=== PATIENT | female | born 1990 | race American Indian/Alaskan Native ===

== ENCOUNTER 2017-03-02 01:16 | Outpatient (CLI) | payer MEDICAID ==
[2017-03-02] MEDS ORDERED: LACTATED RINGERS 1,000 ML ONE (01:21)
[2017-03-02] MEDS ORDERED: LACTATED RINGERS 1,000 ML IV ONE (01:35)
[2017-03-02 03:24] VITALS: BP 108/64
--- NOTE | 2017-03-02 03:24 | Ultrasound Report ---
FINAL REPORT EXAM: US OB BPP WO NON-STRESS HISTORY: NON REASSURING HEART TONES TECHNIQUE: A biophysical profile was performed. FINDINGS: For breathing movements, a total score of 2 out of 2 was obtained. For movements, a total score of 2 out of 2 was obtained. For posterior in tone, a total score of 2 out of 2 was obtained. For qualitative amniotic fluid volume, a total score of 2 out of 2 was obtained. The heart is 151 BPM. IMPRESSION: Biophysical profile score of 8 out of 8. heart rate is 151 BPM.
--- NOTE | 2017-03-02 03:25 | Ultrasound Report ---
FINAL REPORT EXAM: US OB LIMITED HISTORY: NON REASSURING HEART TONES TECHNIQUE: A limited OB sonogram was obtained. FINDINGS: There is a single viable intrauterine with an estimated gestational age of 40 weeks 0 days. The fetus is in cephalic presentation. The and L fluid volume is 23.8 cm which is within normal range. The heart rate is 151 BPM. IMPRESSION: Cephalic presentation. heart rate is 151 BPM. EL equals 23.8 cm which is normal.
== END 2017-03-02 04:01 | disposition home or self-care (01) ==
LOC: TRG 01:16
PROVIDERS: ATTEND Obstetrics & Gynecology
DX: O48.0 Post-term pregnancy (principal); Z3A.40 40 weeks gestation of pregnancy
CPT/HCPCS: 59025; 76815; 76819; 96360; J7120

== ENCOUNTER 2017-03-06 06:38 | Inpatient (IN) | payer MEDICAID ==
[2017-03-06] MEDS ORDERED: LACTATED RINGERS 1,000 ML ONE (06:54)
[2017-03-06] MEDS: LACTATED RINGERS 1,000 ML IV SCH ×2 (07:00→08:24)
[2017-03-06] MEDS ORDERED: STADOL IV PRN (07:44)
[2017-03-06] MEDS ORDERED: SUBLIMAZE IV PRN (07:44)
[2017-03-06] MEDS ORDERED: POLYCILLIN/NS 2 GM/100 ML 2 GM/100 ML BAG IV ONE (07:44)
[2017-03-06] MEDS ORDERED: PITOCin/NS 20 UNIT/1000ML DRIP 20 UNITS/1,000 ML BAG IV SCH (08:00)
[2017-03-06 08:03] LABS: Hematocrit 35.9 % (30.3-42.9); Hemoglobin 11.6 gm/dl (10.1-14.3); Mean Corpuscular HGB Conc 32 % (30-34); Mean Corpuscular Volume 80 fl (79-97); Platelet Count 209 K/mm3 (140-440); Red Blood Count 4.49 M/mm3 (3.65-5.03); Red Cell Distribution Width 17.7 % (13.2-15.2)
[2017-03-06 08:10] LABS: Mean Corpuscular Hemoglobin 26 pg (28-32)
[2017-03-06] MEDS ORDERED: PROVENTIL IH ONE (09:17)
[2017-03-06] MEDS ORDERED: PROVENTIL IH PRN (09:45)
[2017-03-06] MEDS ORDERED: MINERAL OIL PO PRN (09:46)
[2017-03-06] MEDS ORDERED: XYLOCAINE 2% INFILTRATI ONE (09:46)
[2017-03-06] MEDS ORDERED: BRETHINE IVP PRN (09:46)
[2017-03-06] MEDS ORDERED: BRETHINE SUB-Q PRN (09:46)
[2017-03-06] MEDS ORDERED: ePHEDrine SULFATE IV PRN ×2 (09:46→10:21)
--- NOTE | 2017-03-06 09:55 | History and Physical Report ---
History of Present Illness Date of examination: 03/06/17 Date of admission: 03/06/17 06:51 Chief complaint: Intense Labor Pains History of present illness: Early entry to care, co-managed with [facility] due to Maternal obesity and Asthma. course complicated a UTI (treated with Augmentin), and + Chlamydia (treated with Negative YAZAN), a abnormal 1hour GTT (followed by normal 3hour GTT), and Vitamin D Deficiency. Past History Past Medical History: asthma Past Surgical History: no surgical history [employer] History: herpes Family/Genetic History: diabetes (Mother and Sister) Social history: no significant social history, single - Obstetrical History Expected Date of Delivery: 03/02/17 Actual Gestation: 40 Week(s) 4 Day(s) : 2 Para: 1 Hx # Term Pregnancies: 1 Number of Living Children: 1 #1 Gender: Female year: 9 Birthweight: 3.487 kg Method of Delivery: Vaginal Gestational age at delivery: 41 Complications: none Medications and Allergies Allergies Allergy/AdvReac Type Severity Reaction Status Date / Time No Known Allergies Allergy Unverified 03/02/17 01:21 Home Medications Medication Instructions Recorded Confirmed Last Taken Type Pnv,Calcium 72/Iron/Folic Acid 03/06/17 03/05/17 10:00 History [Pnv Plus Multivit Tab] Pnv,Calcium 72/Iron/Folic Acid 1 tab PO DAILY 03/06/17 03/06/17 03/05/17 History [Pnv Plus Multivit Tab] Pnv,Calcium 72/Iron/Folic Acid 1 tab PO DAILY 03/06/17 03/06/17 03/05/17 10:00 History [Pnv Plus Multivit Tab] Active Meds: Active Medications Albuterol (Proventil) 2.5 mg IH Q4HRT PRN PRN Reason: Shortness Of Breath Butorphanol Tartrate (Stadol) 2 mg IV Q2H PRN PRN Reason: Pain , Severe (7-10) Last Admin: 03/06/17 08:10 Dose: 2 mg Fentanyl (Sublimaze) 100 mcg IV Q2H PRN PRN Reason: Labor Pain Ampicillin Sodium (Polycillin/Ns 1 Gm/50 Ml) 1 gm in 50 mls @ 100 mls/hr IV Q4HR SHEILA PRN Reason: Protocol Lactated Ringer's (Lactated Ringers) 1,000 mls @ 125 mls/hr IV DIRECT SHEILA Last Admin: 03/06/17 08:24 Dose: 125 mls/hr Oxytocin/Sodium Chloride (Pitocin/Ns 20 Unit/1000ml Drip) 20 units in 1,000 mls @ 125 mls/hr IV DIRECT SHEILA Review of Systems All systems: negative - Vital Signs Vital signs: Vital Signs Temp Pulse Resp BP Pulse Ox 97.9 F 106 H 16 131/78 97 03/06/17 08:11 03/06/17 08:11 03/06/17 08:11 03/06/17 08:11 03/06/17 08:11 Temp Pulse Resp BP Pulse Ox 97.9 F 117 H 16 131/78 98 03/06/17 08:11 03/06/17 09:52 03/06/17 09:32 03/06/17 08:15 03/06/17 09:52 - Physical Exam Breasts: Positive: normal Cardiovascular: Regular rate Lungs: Positive: Clear to auscultation, Normal air movement Abdomen: Positive: normal appearance, soft, normal bowel sounds Genitourinary (Female): Positive: normal external genitalia, normal perenium Vagina: Positive: normal moisture Uterus: Positive: enlarged Anus/Rectum: Positive: normal perianal skin - Obstetrical FHR: category 1 Uterine Contraction Monitor Mode: External Cervical Dilatation: 5 (Moderate amount of mecoium stained fluids upon AROM at 0844) Cervical Effacement Percentage: 90 station: -2 Uterine Contraction Frequency (min): 1-2 Uterine Contraction Pattern: Regular Uterine Tone Measurement Phase: Resting Uterine Contraction Intensity: Moderate Results Result Diagrams: 03/06/17 07:28 Abnormal lab results 03/06/17 Range/Units 07:28 MCH 26 L (28-32) pg RDW 17.7 H (13.2-15.2) % All other labs normal. Assessment and Plan A: IUP @ 40 4/7 Weeks Category I Tracing Active Labor GBS Positive Maternal Obesity P: Admit to L&D per routine orders AROM IUPC GBS Prohylaxis
[2017-03-06] MEDS ORDERED: PITOCin/NS 30 UNIT/500ML 30 UNITS/500 ML BAG IV SCH (10:00)
[2017-03-06] MEDS ORDERED: LACTATED RINGERS 1,000 ML IV SCH (10:00)
[2017-03-06] MEDS: PITOCin/NS 20 UNIT/1000ML DRIP 20 UNITS/1,000 ML BAG IV SCH ×2 (10:20→12:07)
--- NOTE | 2017-03-06 10:20 | Anesthesia Consultation ---
Anesthesia Consult and Med Hx - Airway Anesthetic Teeth Evaluation: Good ROM Head & Neck: Adequate Mental/Hyoid Distance: Adequate Mallampati Class: Class III Intubation Access Assessment: Possibly Difficult - Pulmonary Exam CTA: Yes - Cardiac Exam Cardiac Exam: RRR - Pre-Operative Health Status ASA Pre-Surgery Classification: ASA3 Proposed Anesthetic Plan: Epidural - Pulmonary Hx Asthma: Yes (childhood, medications utilized two months ago) COPD: No Hx Pneumonia: No - Cardiovascular System Hx Hypertension: No - Central Nervous System Hx Seizures: No Hx Psychiatric Problems: No - Endocrine Hx Renal Disease: No Hx End Stage Renal Disease: No Hx Hypothyroidism: No Hx Hyperthyroidism: No - Hematic Hx Anemia: No Hx Sickle Cell Disease: No - Other Systems Hx Alcohol Use: No
[2017-03-06] MEDS ORDERED: NARCAN 2 MG/2 ML IV PRN (10:21)
--- NOTE | 2017-03-06 10:21 | Anesthesia Day of Surgery ---
Anesthesia Day of Surgery - Day of Surgery Patient Examined: Yes Patient H&P Reviewed: Yes Patient is NPO: Yes Beta Blockers: Yes Cardiac Clearance: Yes Pulmonary Clearance: Yes Aubrey's Test: N/A
[2017-03-06] MEDS ORDERED: MILK OF MAGNESIA PO PRN (10:28)
[2017-03-06] MEDS ORDERED: BENADRYL PO PRN (10:28)
[2017-03-06] MEDS ORDERED: PHENERGAN PR PRN (10:28)
[2017-03-06] MEDS ORDERED: NORCO 5/325 PO PRN (10:28)
[2017-03-06] MEDS ORDERED: DULCOLAX PR PRN (10:28)
--- NOTE | 2017-03-06 10:40 | Procedure Note ---
OB Delivery Note - Delivery Date of Delivery: 03/06/17 (1016) Surgeon: GRACE ROMO Ep Tech: MALOU ESTRADA Estimated blood loss: 100cc - Vaginal Delivery presentation: vertex Delivery position: OA Intrapartum events: meconium Delivery induction: none Delivery augmentation: rupture of membranes Delivery monitor: external FHT, internal uterine Route of delivery: Delivery placenta: spontaneous Delivery cord: nuchal cord, 3 umbilical vessels Episiotomy: none Delivery laceration: none Anesthesia: epidural Delivery comments: of a live 7'4 female over a intact perineum under epidural anesthesia with Apgars of 8 and 9 at 1016 on 03/06/2017. Tight nuchal cord x 1 , easily manually reduced with delivery of . Cord clamped and cut by ROBERTO Romo, not stimulated and placed on warmer to awaiting NICU/RESP team due to meconium stained fluids. Spontaneous delivery of placenta complete and intact with Connell side presenting at 1023. Fundus is firm and midline located 4 below the U. Lochia is scant. GBS prohylaxis x 1. Cord blood collected. Placenta discarded. - Infant A at 1 minute: 8 at 5 minutes: 9 Gender: Female (7'4)
[2017-03-06] MEDS ORDERED: SODIUM CHLORIDE FLUSH SYRINGE 10 ML IV NR (11:00)
[2017-03-06] MEDS ORDERED: fentaNYL-BUPIV 2 MCG/ML-0.125% 200 MCG/100 ML BAG EPIDURAL SCH (11:00)
[2017-03-06] MEDS ORDERED: DEPO-PROVERA (CONTRACEPTION) IM NR (11:15)
[2017-03-06] MEDS ORDERED: POLYCILLIN/NS 1 GM/50 ML 1 GM/50 ML BAG IV SCH (11:47)
[2017-03-06] MEDS: MOTRIN PO SCH ×2 (12:47→20:44)
[2017-03-06] MEDS ORDERED: AFRIN NS PRN (21:10)
[2017-03-06] MEDS: ROBITUSSIN PO PRN (21:36)
[2017-03-06 23:11] LABS: Hematocrit 30.2 % (30.3-42.9); Hemoglobin 9.8 gm/dl (10.1-14.3)
[2017-03-07] MEDS: MOTRIN PO SCH ×3 (03:54→19:09)
--- NOTE | 2017-03-07 12:39 | Post Anesthesia Evaluation ---
- Post Anesthesia Evaluation Patient Participated: Yes Airway Patent: Yes Stable Respiratory Function: Yes Nausea/Vomiting: No Temp > 96.8F: Yes Pain Manageable: Yes Adequeate Hydration: Yes Anesthesia Complications: No Block Receding Appropriately: Yes (Patient reports good mobility and function without indication of complication/sequelae.) Patient on Ventilator: No
--- NOTE | 2017-03-07 14:37 | Progress Note ---
Assessment and Plan A: PP Day #1 Stable P: Follow Routine orders Depo Provera prior to discharge D/C Home in the AM RTO in 6 Weeks Subjective - Subjective Date of service: 03/07/17 Interval history: Early entry to care, co-managed with [facility] due to Maternal obesity and Asthma. course complicated a UTI (treated with Augmentin), and + Chlamydia (treated with Negative YAZAN), a abnormal 1hour GTT (followed by normal 3hour GTT), and Vitamin D Deficiency. Patient reports: appetite normal, voiding normally, pain well controlled, flatus , bowel movement, ambulating normally : doing well, bottle feeding Objective - Vital Signs Latest vital signs: Vital Signs Temp Pulse Resp BP BP Pulse Ox 03/07/17 08:23 97.5 F L 77 16 123/80 98 03/07/17 04:54 18 03/07/17 03:54 18 03/06/17 23:50 98.6 F 93 H 18 115/64 03/06/17 21:44 18 03/06/17 20:44 18 03/06/17 20:00 97.9 F 97 H 18 110/71 03/06/17 16:54 98.4 F 93 H 18 107/64 98 Intake and Output 03/06/17 03/07/17 03/07/17 22:59 06:59 14:59 Intake Total 480 700 600 Output Total 1600 Balance -1120 700 600 Intake: Oral 600 Intake, Free Water 480 700 Output: Urine 1600 Void 1600 Other: Intake, Other Source Saline Solution Total, Intake Amount 360 Total, Output Amount 600 # Voids Void 1 1 1 # Bowel Movements 0 - Exam Breasts: Present: normal Cardiovascular: Present: Regular rate Lungs: Present: Clear to auscultation, Normal air movement Abdomen: Present: normal appearance, soft, normal bowel sounds Uterus: Present: normal, firm, fundal height below umbilicus Extremities: Present: normal - Labs Labs: Abnormal lab results 03/06/17 Range/Units 22:52 Hgb 9.8 L (10.1-14.3) gm/dl Hct 30.2 L (30.3-42.9) %
--- NOTE | 2017-03-07 14:38 | Discharge Summary ---
Providers - Providers Date of Admission: 03/06/17 06:51 Date of discharge: 03/08/17 Attending physician: ANNA ROLON MD Primary care physician: ANNA ROLON MD Hospitalization Reason for admission: active labor Delivery: Episiotomy: none Laceration: none Other procedures: none complications: none Discharge diagnosis: IUP at term delivered [place] baby: female Condition at discharge: Good Disposition: [id number]-01 TO HOME OR SELFCARE Plan - Provider Discharge Summary Activity: routine, no sex for 6 weeks, no heavy lifting 4 weeks, no strenuous exercise Diet: routine Instructions: routine Additional instructions: [] Smoking cessation referral if applicable(refer to patient education folder for contact #) [] Refer to [facility]'s [facility] Booklet Call your doctor immediately for: * Fever > 100.5 * Heavy vaginal bleeding ( >1 pad per hour) * Severe persistent headache * Shortness of breath * Reddened, hot, painful area to leg or breast * Drainage or odor from incision. * Keep incision clean and dry at all times and follow doctor's instructions regarding bathing/showering - Follow up plan Follow up: ANNA ROLON MD [Primary Care Provider] - 6 Weeks
[2017-03-07] MEDS ORDERED: DEPO-PROVERA (CONTRACEPTION) IM ONE ×2 (15:30→20:00)
[2017-03-07] MEDS: ROBITUSSIN PO PRN (19:09)
[2017-03-08] MEDS: MOTRIN PO SCH (00:54)
[2017-03-08 13:00] VITALS: BP 111/73
== END 2017-03-08 14:15 | disposition home or self-care (01) | DRG 774 ==
LOC: TRG 06:38 → LD 06:51 → OB 12:22
PROVIDERS: ADMIT Obstetrics & Gynecology; ATTEND Obstetrics & Gynecology
PROC: 10E0XZZ Delivery of Products of Conception, External Approach (ICD-10-PCS; principal; 2017-03-06)
PROC: 3E0R3BZ Introduction of Anesthetic Agent into Spinal Canal, Percutaneous Approach (ICD-10-PCS; 2017-03-06)
PROC: 00HU33Z Insertion of Infusion Device into Spinal Canal, Percutaneous Approach (ICD-10-PCS; 2017-03-06)
DX: O99.824 Streptococcus B carrier state complicating childbirth (principal); O98.82 Other maternal infectious and parasitic diseases complicating childbirth; O99.52 Diseases of the respiratory system complicating childbirth; J45.909 Unspecified asthma, uncomplicated; Z3A.40 40 weeks gestation of pregnancy; Z37.0 Single live birth; E66.9 Obesity, unspecified; Z68.41 Body mass index [BMI] 40.0-44.9, adult; O99.214 Obesity complicating childbirth; Z83.3 Family history of diabetes mellitus; O77.0 Labor and delivery complicated by meconium in amniotic fluid; O69.81X0 Labor and delivery complicated by cord around neck, without compression, not applicable or unspecified
CPT/HCPCS: 36415; 85014; 85018; 85027; 86592; 86850; 86900; 86901; 94640; J0290; J0595; J1050; J2590; J7120